=== PATIENT | female | born 1950 | race Caucasian/White ===

== ENCOUNTER 2024-05-18 04:25 | Inpatient (IN) | payer MEDICARE, SELFPAY ==
[2024-05-17 21:29] VITALS: BP 166/89
[2024-05-17 22:02] VITALS: BP 141/85
[2024-05-17 22:04] VITALS: BMI 29.7
[2024-05-17 23:00] VITALS: BP 140/71
[2024-05-18] VITALS (7 sets, daily range): BP systolic 132–159; BP diastolic 74–91; BMI 30.4
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
[2024-05-18 01:38] LABS: % Basophils 0.4 % (0-2); % Eosinophils 1.1 % (0-6); % Immature Granulocytes 0.4 % (0-0.5); % Lymphocytes 9.5 % (20.5-51.1); % Monocytes 4.9 % (1.7-9.3); % Neutrophils 83.7 % (42.2-75.2); Absolute Basophils 0.1 10^3/uL (0-0.2); Absolute Eosinophils 0.2 10^3/uL (0-0.7); Absolute Immature Granulocytes 0.1 10^3/uL (0-0.05); Absolute Lymphocytes 1.4 10^3/uL (1.2-3.4); Absolute Monocytes 0.7 10^3/uL (0.1-0.6); Absolute Neutrophils 12.7 10^3/uL (1.4-6.5); Hematocrit 35.7 % (37.0-47.0); Hemoglobin 11.9 g/dL (12.0-16.0); Mean Corp Hgb Conc. 33.3 g/dL (33.0-37.0); Mean Corpuscular Hgb 25.8 pg (27.0-31.0); Mean Corpuscular Volume 77.4 fL (81.0-99.0); Mean Platelet Volume 9.3 fL (7.4-10.4); Nucleated Red Blood Cells % 0 %; Platelet Count 399 10^3/uL (130-400); Red Blood Cell Count 4.61 10^6/uL (4.20-5.40); Red Cell Dist. Width 13.6 % (11.5-14.5); White Blood Cell Count 15.1 10^3/uL (4.8-10.8)
[2024-05-18 01:51] LABS: Lactic Acid 0.9 mmol/L (0.7-2.0)
[2024-05-18 02:00] LABS: Blood Urea Nitrogen 35 mg/dl (7-17); Calcium 10.6 mg/dl (8.4-10.2); Carbon Dioxide 24 mmol/L (22-30); Chloride 102 mmol/L (98-107); Estimated Creatinine Clearance 36 ml/min; Glucose 129 mg/dl (70-99); Sodium 136 mmol/L (135-145); eGFR 43.42
[2024-05-18] MEDS: NSS 1000 IV ×4 (02:26→20:12)
[2024-05-18] MEDS: OFIRMEV 100 IV (04:00)
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
[2024-05-18] MEDS: ZOSYN 50 IV ×4 (04:23→21:30)
[2024-05-18] MEDS: FLUSH (NSS) 1 FLUSH IV (04:23)
--- NOTE | 2024-05-18 11:22 | W.PN.HOSP.TC ---
Today's Communication/Plan
-
apprec CRS
ice chips
IVF
Assessment / Plan
Assessment / Plan
pt is a 74 year old female
IF patient insists on leaving, it will be AMA--risk of colon perforation real.....
Large bowel obstruction with transition point in distal descending colon--had 2 BMs since arrival--? stricture, malignancy--apprec CRS--for gastrograffin/barium enema--ice chips only--cont zosyn for now
Anemia suspect chronic --check usual studies
HX Thyroid cancer, thyroid disorder
GERD -- PPI
Essential HTN--meds on hold
Hypercholesterolemia -- meds on hold
DVT proph
code status -- Full Code
Anticipated Discharge: > 48 hours
Subjective/Interval History
-
Date of Service: May 18, 2024
pt had 2 large BMs
Objective Data
-
Labs:
Laboratory Results
05/18/24
01:31
WBC 15.1 H
Hgb 11.9 L
Hct 35.7 L
Plt Count 399
Sodium 136
Potassium
Chloride 102
Carbon Dioxide 24
BUN 35 H
Creatinine 1.3 H
Glucose 129 H
Calcium 10.6 H
Total Bilirubin Cancelled
AST Cancelled
ALT Cancelled
Alkaline Phosphatase Cancelled
Vital Signs:
max temp for 24 hours
05/17/24
21:29
Temp 99.2 F
Vital Signs
Temp Pulse Resp BP Pulse Ox
97.9 F 108 16 148/91 100
05/18/24 07:35 05/18/24 07:35 05/18/24 07:35 05/18/24 07:35 05/18/24 07:35
Review of Systems
-
All other systems: Reviewed and negative
Abdomen/GI: Reports Constipated; Denies Abdominal Pain
Physical Exam
-
General: Well Developed, Well Nourished and No Apparent Distress
HEENT: Normocephalic and Atraumatic
Respiratory: Clear to Auscultation; Negative Wheezes or Rhonchi
Cardiac: Regular Rhythm and S1/S2; Negative Murmur
GI: Soft, Nontender, Nondistended and Normal Bowel Sounds
Musculoskeletal: No Clubbing, No Cyanosis and No Edema
Neuro: Awake and Alert
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
[2024-05-18] MEDS: NSS (PRESERVATIVE FREE) 10 ML IV (14:31)
[2024-05-18] MEDS: PROTONIX IV 40 MG IV (14:31)
--- NOTE | 2024-05-18 17:06 | CM ---
Alert awake oriented patient who lives with her Shaheen who lives in a 1 story home with 1 steps to enter.She is independent in driving and in all activities of daily living.Offered VN she declined.
No adaptive devices
Never had VN/SNF
Pharmacy [facility]
PCP Dr Wang
PLAN Home declined VN
[2024-05-19] MEDS: ZOSYN 50 IV ×4 (03:56→21:44)
[2024-05-19 06:08] LABS: Hematocrit 34.3 % (37.0-47.0); Hemoglobin 11.1 g/dL (12.0-16.0); Mean Corp Hgb Conc. 32.4 g/dL (33.0-37.0); Mean Corpuscular Hgb 25.9 pg (27.0-31.0); Mean Platelet Volume 9.3 fL (7.4-10.4); Platelet Count 411 10^3/uL (130-400); Red Blood Cell Count 4.29 10^6/uL (4.20-5.40); Red Cell Dist. Width 13.9 % (11.5-14.5); Reticulocyte Count 1.2 % (0.4-2.8); White Blood Cell Count 12.1 10^3/uL (4.8-10.8)
[2024-05-19 06:35] LABS: ALT (SGPT) 16 U/L (0-35); AST (SGOT) 20 U/L (14-36); Albumin 3.9 g/dl (3.5-5.0); Alkaline Phosphatase 100 U/L (38-126); Blood Urea Nitrogen 21 mg/dl (7-17); Calcium 9.9 mg/dl (8.4-10.2); Carbon Dioxide 21 mmol/L (22-30); Chloride 108 mmol/L (98-107); Estimated Creatinine Clearance 37 ml/min; Glucose 87 mg/dl (70-99); Magnesium 1.9 mg/dl (1.6-2.3); Potassium 4.8 mmol/L (3.5-5.1); Sodium 139 mmol/L (135-145); Total Bilirubin 0.4 mg/dl (0.2-1.3); Total Protein 6.2 g/dl (6.3-8.2); eGFR 43.42
[2024-05-19 06:45] LABS: Total Iron Binding Capacity 277 ug/dl (265-497)
[2024-05-19 07:03] LABS: TSH Reflex To Free T4 2.19 uIU/ml (0.47-4.68)
[2024-05-19 07:38] LABS: Folate 10.9 ng/ml (2.76-20); Vitamin B12 > 1000 pg/ml (239-931)
[2024-05-19 07:40] VITALS: BP 121/74
[2024-05-19] MEDS: NSS (PRESERVATIVE FREE) 10 ML IV (07:49)
[2024-05-19] MEDS: PROTONIX IV 40 MG IV (07:49)
[2024-05-19] MEDS: NSS 1000 IV ×2 (07:53→21:43)
[2024-05-19 08:39] LABS: CEA 8.44 ng/ml
--- NOTE | 2024-05-19 10:23 | W.PN.HOSP.TC ---
Today's Communication/Plan
-
Continue with IV fluids and IV antibiotics
Keep NPO.
For Gastrografin enema in a.m.
Assessment / Plan
Assessment / Plan
pt is a 74 year old female
Acute on chronic constipation - CT imaging concerning for Large bowel obstruction with transition point in distal descending colon--had 2 BMs since arrival--? stricture, malignancy--apprec CRS--for gastrograffin/barium enema--ice chips /NPO
Leukocytosis with a circumferential thickening associated diverticula formation and soft tissue stranding in the distal descending colon. There is also wall thickening associated diverticulosis and luminal narrowing throughout the proximal to mid
sigmoid colon-concerning for segmental colitis versus stercoral coral colitis.-cont zosyn for now.Improving WBC
Anemia -Microcytic
Iron studies suggest no iron deficiency. B12 folate normal. Anemia mild in nature. Follow as an outpatient
HX Thyroid cancer, thyroid disorder
GERD -- PPI
Essential HTN--meds on hold
Hypercholesterolemia -- meds on hold
DVT proph
code status -- Full Code
Anticipated Discharge: > 48 hours
Subjective/Interval History
-
Date of Service: May 19, 2024
No bowel movement today but passing gas. She has some crampy lower abdominal pain today.
No nausea vomiting.
Objective Data
-
Labs:
Laboratory Results
05/19/24
05:49
WBC 12.1 H
Hgb 11.1 L
Hct 34.3 L
Plt Count 411 H
Sodium 139
Potassium 4.8
Chloride 108 H
Carbon Dioxide 21 L
BUN 21 H
Creatinine 1.3 H
Glucose 87
Calcium 9.9
Total Bilirubin 0.4
AST 20
ALT 16
Alkaline Phosphatase 100
Vital Signs:
Vital Signs
Temp Pulse Resp BP Pulse Ox
98.1 F 87 16 121/74 98
05/19/24 07:40 05/19/24 07:40 05/19/24 07:40 05/19/24 07:40 05/19/24 07:40
I&O
05/18/24 05/19/24 05/20/24
06:59 06:59 06:59
Intake Total 980 / 980
Balance 980 / 980
Review of Systems
-
Constitutional: Denies Fever
EENT: Denies Sore Throat
Respiratory: Denies Cough or Trouble Breathing
Cardiac: Denies Chest Pain
Neuro: Denies Dizzy
Physical Exam
-
General: No Apparent Distress
HEENT: Moist Mucous Membranes
Respiratory: Clear to Auscultation
Cardiac: Regular Rhythm and S1/S2
GI: Soft and Distended; Negative Normal Bowel Sounds (hypoactive) or Tender
Neuro: AO x 3
Data Reviewed
-
Labs: Labs Reviewed by me
[2024-05-19 10:41] VITALS: BMI 30.1
[2024-05-19] MEDS: DILAUDID 0.5 MG IV (10:46)
--- NOTE | 2024-05-19 11:27 | W.PN.GS2 ---
Addendum entered and electronically signed by Phong Zuleta MD 05/19/24 11:51:
Patient seen and examined with [employer], agree with documented progress note
About the same as yesterday afternoon.
Some tenderness at times/discomfort but improved from presentation
Passing flatus but no significant further bowel movements since yesterday a.m.
AFVSS
ABD: Soft, mildly distended, nontender on examination even on deep palpation
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
Appears to be partial but uncertain degree if high or low/moderate partial
No indications for urgent intervention
Will obtain Gastrografin enema to evaluate characteristics of stricture tomorrow further surgical planning pending results
Original Note:
Today's Communication / Plan
-
CT with Gastrografin enema in AM
Assessment / Plan
-
74-year-old female presenting with large bowel obstruction and resultant constipation which is acute on chronic. This appears radiographically to be a rather high-grade distal colonic obstruction within the descending colon.
Uncertain etiology but there appears to be circumferential wall thickening in the distal descending colon this could be inflammatory infectious or neoplastic in nature.
Reported large formed bowel movements providing relief of her symptoms but no BM since, passing flatus. She is nontoxic and there is no peritoneal signs. CEA mildly elevated.
AFVSS
Labs stable. WBC is trending down.
--Continue NPO
--IVF while NPO
--Continue empiric abx
--VTE ppx as per primary team
--Plan Gastrografin enema study tomorrow AM in radiology to help define the location and severity of stricture which will then help further guide interventions and management which may include colonoscopy for further diagnostic purposes.
If there was clinical decline there could be indications for urgent surgical management.
Subjective Data
-
Date of Service: May 19, 2024
Patient seen and examined at bedside with Dr. Zuleta. Denies n/v. No stools since yesterday morning. Passing some gas. Pain when laying flat, otherwise comfortable.
Objective Data
-
Intake and Output
05/18/24 05/19/24 05/20/24
06:59 06:59 06:59
Intake Total 980 / 980
Balance 980 / 980
Intake:
IV fluids (Total) 880 / 880
IV piggybacks 100 / 100
Other:
Number of approximated MODERATE 1 3
amounts of urine
Vital Signs
Temp Pulse Resp BP Pulse Ox
98.1 F 87 16 121/74 98
05/19/24 07:40 05/19/24 07:40 05/19/24 07:40 05/19/24 07:40 05/19/24 07:40
Lab Results
05/19/24 05:49
05/19/24 05:49
Calcium 9.9 mg/dl (8.4-10.2) 05/19/24 05:49
Magnesium 1.9 mg/dl (1.6-2.3) 05/19/24 05:49
Total Bilirubin 0.4 mg/dl (0.2-1.3) 05/19/24 05:49
AST 20 U/L (14-36) 05/19/24 05:49
ALT 16 U/L (0-35) 05/19/24 05:49
Alkaline Phosphatase 100 U/L (38-126) 05/19/24 05:49
Total Protein 6.2 g/dl (6.3-8.2) L 05/19/24 05:49
Albumin 3.9 g/dl (3.5-5.0) 05/19/24 05:49
Physical Exam
-
NAD
ABD soft, mild distention, NT, [employer]
[2024-05-19 15:56] VITALS: BP 128/76
[2024-05-19 23:22] VITALS: BP 149/76
[2024-05-20] MEDS: ZOSYN 50 IV ×3 (03:49→15:30)
[2024-05-20 06:00] VITALS: BMI 30.2
[2024-05-20 06:38] LABS: Hematocrit 33.8 % (37.0-47.0); Hemoglobin 10.8 g/dL (12.0-16.0); Mean Corpuscular Hgb 25.5 pg (27.0-31.0); Mean Corpuscular Volume 79.7 fL (81.0-99.0); Mean Platelet Volume 9.4 fL (7.4-10.4); Platelet Count 387 10^3/uL (130-400); Red Blood Cell Count 4.24 10^6/uL (4.20-5.40); Red Cell Dist. Width 13.6 % (11.5-14.5); White Blood Cell Count 9.6 10^3/uL (4.8-10.8)
[2024-05-20 07:00] VITALS: BP 144/75
[2024-05-20 07:07] LABS: Blood Urea Nitrogen 18 mg/dl (7-17); Calcium 9.8 mg/dl (8.4-10.2); Carbon Dioxide 15 mmol/L (22-30); Chloride 108 mmol/L (98-107); Estimated Creatinine Clearance 43 ml/min; Glucose 50 mg/dl (70-99); Potassium 4.6 mmol/L (3.5-5.1); Sodium 138 mmol/L (135-145); eGFR 53.06
[2024-05-20] MEDS: D5LR 1000 IV (08:27)
[2024-05-20] MEDS: NSS (PRESERVATIVE FREE) 10 ML IV (08:29)
[2024-05-20] MEDS: PROTONIX IV 40 MG IV (08:30)
[2024-05-20 08:35] LABS: Glucose - Point of Care 49 mg/dl (70-99)
[2024-05-20] MEDS: DEXTROSE 50% SYRINGE 25 GRAMS IV (08:59)
--- NOTE | 2024-05-20 09:15 | W.PN.GS2 ---
Today's Communication / Plan
-
Gastrografin enema today
Assessment / Plan
-
74-year-old female presenting with large bowel obstruction and resultant constipation which is acute on chronic. This appears radiographically to be a rather high-grade distal colonic obstruction within the descending colon.
Uncertain etiology but there appears to be circumferential wall thickening in the distal descending colon this could be inflammatory, infectious vs neoplastic. CEA mildly elevated.
Able to pass large stool yesterday
She is nontoxic and there is no peritoneal signs.
AFVSS
Leukocytosis resolved
Hypoglycemia on am labs
--Continue NPO
--IVF while NPO, changed to D5/LR given hypoglycemia
--Continue empiric abx
--VTE ppx as per primary team
--Plan Gastrografin enema study today in radiology to help define the location and severity of stricture which will then help further guide interventions and management
If there was clinical decline there could be indications for urgent surgical management.
Subjective Data
-
Date of Service: May 20, 2024
Patient seen and examined today at bedside with Dr. Liu. Notes that yesterday afternoon she passed a very large BM and flatus. Denies pain. Denies n/v.
Objective Data
-
Intake and Output
05/19/24 05/20/24 05/21/24
06:59 06:59 06:59
Intake Total 980 / 980 240 / 240
Balance 980 / 980 240 / 240
Intake:
Oral fluids 240 / 240
IV fluids (Total) 880 / 880
IV piggybacks 100 / 100
Other:
Number of approximated MODERATE 3 2
amounts of urine
Vital Signs
Temp Pulse Resp BP Pulse Ox
97.8 F 86 18 144/75 100
05/20/24 07:00 05/20/24 07:00 05/20/24 07:00 05/20/24 07:00 05/20/24 07:00
Lab Results
05/20/24 06:15
05/20/24 06:15
Calcium 9.8 mg/dl (8.4-10.2) 05/20/24 06:15
Magnesium 1.9 mg/dl (1.6-2.3) 05/19/24 05:49
Total Bilirubin 0.4 mg/dl (0.2-1.3) 05/19/24 05:49
AST 20 U/L (14-36) 05/19/24 05:49
ALT 16 U/L (0-35) 05/19/24 05:49
Alkaline Phosphatase 100 U/L (38-126) 05/19/24 05:49
Total Protein 6.2 g/dl (6.3-8.2) L 05/19/24 05:49
Albumin 3.9 g/dl (3.5-5.0) 05/19/24 05:49
Physical Exam
-
NAD
ABD soft, mild distention, NT, [employer]ING SUPERVISOR
[2024-05-20 09:22] LABS: Glucose - Point of Care 144 mg/dl (70-99)
[2024-05-20 12:11] LABS: Glycohemoglobin (HgbA1c) 6.9 % (4.0-5.6)
--- NOTE | 2024-05-20 12:59 | W.PN.HOSP.TC ---
Addendum entered and electronically signed by Serge Hernandez MD 05/20/24 16:02:
I saw and evaluated the patient. I reviewed the resident�s note and agree with findings and plan as documented in the resident�s note.
Gastrografin enema study shows no evidence of obvious obstruction. Patient has been having change in bowel habits / over the last few months. She notices some correlation with her ferrous sulfate medication. She has been taking ferrous sulfate
for iron deficiency issues. She is not on any bowel regimen normally. Advised her to keep her hydrated. Advised to add prunes to her diet. Started on Metamucil and MiraLAX. If continue to have constipation to follow-up with PCP or with GI.
She moved from [place] to [place] a year and a half ago and follows with a local PCP. Does not see any other specialist. Lately she noticed low blood pressure at home. 1 reading was showing 90 mmHg systolic. She almost passed out on 1
occasion. Blood pressure has been mostly under goal here. Advised to stop spironolactone as patient with chronic kidney disease/renal insufficiency. Also advised to cut down Vasotec to 1 tablet in the morning and 1 tablet in the evening and
continue to follow blood pressures at home.
cannot rule out stercoral colitis. Will complete 7-day course of antibiotics. Prescribed Augmentin for another 5 days.
Medically stable for discharge home. Patient understood the changes in the medication and follow-up plan.
Total time of discharge 35 minutes
Original Note:
Today's Communication/Plan
-
Continue NPO, IVF while NPO. Changed to D5/lactated ringer for hypoglycemia. Continue empiric antibiotics. Barium enema showed no evidence of acute pathology. No evidence of stricture or obstruction at the mid descending colon. Diverticuli are
present in the colon with no CT evidence of diverticulitis.
Assessment / Plan
Assessment / Plan
Patient is a 74 year old female
- Acute on chronic constipation - Improving
CT imaging concerning for Large bowel obstruction with transition point in distal descending colon
Had two BMs since arrival
Barium enema showed no evidence of acute pathology. There was no evidence of stricture or obstruction in the mid descending colon. Diverticula are present in the colon with no CT evidence of diverticulitis.
Continue n.p.o.
IVF while NPO changed to D5/LR for hypoglycemia
- Leukocytosis with a circumferential thickening associated diverticula formation and soft tissue stranding in the distal descending colon: Improving
There is also wall thickening associated diverticulosis and luminal narrowing throughout the proximal to mid sigmoid colon - concerning for segmental colitis versus stercoral coral colitis.
Continuing Zosyn.
WBCs within normal range at 9.6
- Anemia - Microcytic: Stable
Iron studies suggest no iron deficiency. B12 folate normal. Anemia mild in nature.
Appropriate to follow as an outpatient
- HX Thyroid cancer, thyroid disorder
- GERD: Stable
Continue PPI
- Essential HTN:
meds on hold
Hypercholesterolemia:
meds on hold
DVT proph
code status -- Full Code
Anticipated Discharge: 24 - 48 hours
Subjective/Interval History
-
Date of Service: May 20, 2024
Met with patient at the bedside. Overall, she is doing better and states that she offers no complaints at the present time. She does wish that she would be able to eat or drink something more than ice chips today.
Objective Data
-
Labs:
Laboratory Results
05/20/24
06:15
WBC 9.6
Hgb 10.8 L
Hct 33.8 L
Plt Count 387
Sodium 138
Potassium 4.6
Chloride 108 H
Carbon Dioxide 15 L
BUN 18 H
Creatinine 1.1 H
Glucose 50 L*
Calcium 9.8
Vital Signs:
Vital Signs
Temp Pulse Resp BP Pulse Ox
97.8 F 86 18 144/75 100
05/20/24 07:00 05/20/24 07:00 05/20/24 07:00 05/20/24 07:00 05/20/24 09:46
I&O
05/19/24 05/20/24 05/21/24
06:59 06:59 06:59
Intake Total 980 / 980 240 / 240
Balance 980 / 980 240 / 240
Review of Systems
-
History Source: Patient
Constitutional: Reports No Symptoms
EENT: Reports No Symptoms Reported
Respiratory: Reports No Symptoms
Cardiac: Reports No Symptoms
Breast: Reports No Symptoms
Allergy / Immunology: Reports No Symptoms
Physical Exam
-
General: Well Developed, Well Nourished and No Apparent Distress
HEENT: Normocephalic, Atraumatic and Moist Mucous Membranes
Respiratory: Clear to Auscultation
Cardiac: Regular Rhythm and S1/S2
Breast: Deferred by me
GI: Soft, Nontender, Nondistended and Other (Minimal bowel sounds)
Rectal: Deferred by Provider
Genito-urinary: Deferred by me
Musculoskeletal: No Clubbing, No Cyanosis and No Edema
Skin: Warm
Neuro: Nonfocal/Grossly Intact
Hematologic / Lymphatic: Lymphadenopathy
Psych: Calm
[2024-05-20 14:08] LABS: Glucose - Point of Care 132 mg/dl (70-99)
[2024-05-20 15:00] VITALS: BP 140/76
--- NOTE | 2024-05-20 15:20 | W.DS.TRANS ---
DC Summary - Adult Caregiver
-
Discharge Instructions:
Discharge Diagnosis/Procedures Constipation, Diverticulitis/stercolitis, Hx of
Thyroid Cancer, Essential HTN,
Diet Regular,As tolerated
Activity No restrictions
Driving Restrictions As prior to admission
Bathing Restrictions None
Instructions:
Stand-Alone Forms:
Changes to Home Medications: Yes
Discharge Medications:
DC Medications w/original date entered in [employer]
amitriptyline 75 mg tablet 75 mg PO HS Mental Health/Anxiety 05/18/24
cyanocobalamin (B12)-cobamamide 5,000 mcg-100 mcg sublingual lozenge (B12) 15,000 medina sublingual HS Supplement 05/18/24
diltiazem HCl 120 mg capsule,24 hr,extended release 120 mg PO HS CARDIAC 05/18/24
enalapril maleate 10 mg tablet (Vasotec) 10 mg PO QPM Blood Pressure 05/18/24
esomeprazole magnesium 40 mg capsule,delayed release (Nexium) 40 mg PO HS GERD 05/18/24
ferrous sulfate 325 mg (65 mg iron) tablet (Iron (ferrous sulfate)) 325 mg PO DAILY Supplement 05/18/24
levothyroxine 125 mcg tablet (Synthroid) 125 mcg PO DAILY Thyroid 05/18/24
pravastatin 20 mg tablet 20 mg PO HS High Cholesterol 05/18/24
amoxicillin 875 mg-potassium clavulanate 125 mg tablet 1 tab PO BID #10 tabs 05/20/24
enalapril maleate 20 mg tablet (Vasotec) 10 mg (1/2 x 20 mg) PO DAILY Blood Pressure #0 tabs 05/20/24
polyethylene glycol 3350 17 gram oral powder packet 17 g PO DAILYPRN PRN constipation #30 packets 05/20/24
polyethylene glycol 3350 17 gram oral powder packet (Miralax) 17 g PO DAILY #30 ea 05/20/24
psyllium husk 0.4 gram capsule (Metamucil) 0.4 g PO DAILY #30 caps 05/20/24
Home Medication Changes
New Meds added:
Metamucil, Miralax, and Augmentin added upon discharge.
Stopped Meds:
Spironolactone
Changes in Meds:
Decreased Vasotec AM dose from 20mg to 10mg.
Pending Results: No
--- NOTE | 2024-05-20 15:28 | W.DCSUMMARY ---
Addendum entered and electronically signed by Serge Hernandez MD 05/20/24 16:03:
Read, reviewed, and agree. See same day progress note for additional details. Time spent coordinating care, DC planning, review of DC plan of care with resident, transition of care, review of records in EMR, med rec, consults, notes, d/w
consultants, nursing, family, and CM mins
Original Note:
Documented by User: Jannet Ramos MD, Resident 05/20/24 15:49
Discharge Summary
Discharge Data
Date of Admission: 05/18/24
Date of Discharge: 05/20/24
-
Pending Results: No
Hospital Course
Patient is a 74-year-old female who presented to the emergency room complaining of not having a bowel movement for the past 10 days. She had a bowel movement prior to her dental surgery which took place on May 07 but not since then. She took
Dulcolax and magnesium citrate but it did not help. She had a prior history of diverticulitis and also had a history of hiatal hernia repair. In the emergency department she managed to pass let us which made her feel better but was unable to pass
stool. A CT of the abdomen was conducted which showed evidence of a large bowel obstruction with a transition point in the distal descending colon with wall thickening and surrounding inflammation with moderate diverticulosis with distal
compression. Patient was admitted to the hospital and a chrome FN/barium enema was ordered and ice chips were given. Zosyn was ordered for empiric antibiotic treatment.
The patient was put on bowel rest due to suspected large bowel obstruction. IV fluid hydration and further natural decompression of her colon through bowel rest was encouraged. As the patient remained n.p.o. and was under bowel rest, her symptoms
slowly improved. After adequate bowel rest she was able to pass a very large bowel movement and flatus. Upon having her bowel movement her symptoms improved. Barium enema conducted showed no evidence of acute pathology. There was no evidence of
stricture or obstruction in the mid descending colon. Diverticula are present in the colon with no evidence of diverticulitis. Patient was returned to a regular diet after adequate bowel rest. Patient was able to tolerate her regular diet.
The patient has reached maximal benefit from this hospital stay and is acceptable for discharge. Metamucil, MiraLAX, and Augmentin have been added upon discharge. We have stopped spironolactone due to concerns of interactions between her home
medications and her kidney function. We have also decreased her Vasotec morning dose from 20 mg to 10 mg. Patient is appropriate to follow up with in the outpatient setting.
Discharge Plan
-
Patient Disposition: Home (Routine Discharge)
Discharge Diagnosis/Procedures: Constipation, Diverticulitis/stercolitis, Hx of Thyroid Cancer, Essential HTN,
Diet: As tolerated and Regular
Activity: No restrictions
Driving Restrictions: As prior to admission
Bathing Restrictions: None
Blood Work: BMP in 1 week - Arrange through PCP.
Activity Restrictions/Additional Instructions:
Avoid constipation, keep your stools soft with over the counter Miralax daily. Please call your surgeon if you have difficulty passing stools or have abdominal cramping/pain.
Referrals:
Tristin Wang DO [Family Provider] -
Phong Zuleta MD [Active] - in one to two weeks
Prescriptions:
New
polyethylene glycol 3350 17 gram powder in packet
17 g PO DAILYPRN PRN (Reason: constipation) Qty: 30 0RF
amoxicillin-pot clavulanate 875-125 mg tablet
1 tab PO BID Qty: 10 0RF
psyllium husk [Metamucil] 0.4 gram capsule
0.4 g PO DAILY Qty: 30 0RF
polyethylene glycol 3350 [Miralax] 17 gram powder in packet
17 g PO DAILY Qty: 30 0RF
Continued
enalapril maleate [Vasotec] 10 mg Tablet
10 mg PO QPM
amitriptyline 75 mg Tablet
75 mg PO HS
diltiazem HCl 120 mg Capsule,Extended Release 24 Hr
120 mg PO HS
ferrous sulfate [Iron (ferrous sulfate)] 325 mg (65 mg iron) Tablet
325 mg PO DAILY
esomeprazole magnesium [Nexium] 40 mg Capsule,Delayed Release(Dr/Ec)
40 mg PO HS
levothyroxine [Synthroid] 125 mcg Tablet
125 mcg PO DAILY
pravastatin 20 mg Tablet
20 mg PO HS
B12 5,000-100 mcg Lozenge
15,000 medina SUBLINGUAL HS
Changed
enalapril maleate [Vasotec] 20 mg Tablet
10 mg PO DAILY Qty: 0 0RF
Rx Instructions:
Dose decreased to 10mg
Discontinued
spironolactone 25 mg Tablet
25 mg PO DAILY
Discharge Orders:
Discharge Patient (As Directed); Ordered 05/20/24
Ordered By: Jannet Ramos
Discharge Date and Time
Print Language: BRAZILIAN

Documented by User: Serge Hernandez MD 05/20/24 16:02
Discharge Summary
Discharge Data
Date of Admission: 05/18/24
Date of Discharge: 05/20/24
Discharge Plan
-
Patient Disposition: Home (Routine Discharge)
Discharge Diagnosis/Procedures: Constipation, Diverticulitis/stercolitis, Hx of Thyroid Cancer, Essential HTN,
Diet: As tolerated and Regular
Activity: No restrictions
Driving Restrictions: As prior to admission
Bathing Restrictions: None
Blood Work: BMP in 1 week - Arrange through PCP.
Activity Restrictions/Additional Instructions:
Avoid constipation, keep your stools soft with over the counter Miralax daily. Please call your surgeon if you have difficulty passing stools or have abdominal cramping/pain.
Referrals:
Tristin Wang DO [Family Provider] -
Phong Zuleta MD [Active] - in one to two weeks
Prescriptions:
New
polyethylene glycol 3350 17 gram powder in packet
17 g PO DAILYPRN PRN (Reason: constipation) Qty: 30 0RF
amoxicillin-pot clavulanate 875-125 mg tablet
1 tab PO BID Qty: 10 0RF
psyllium husk [Metamucil] 0.4 gram capsule
0.4 g PO DAILY Qty: 30 0RF
polyethylene glycol 3350 [Miralax] 17 gram powder in packet
17 g PO DAILY Qty: 30 0RF
Continued
enalapril maleate [Vasotec] 10 mg Tablet
10 mg PO QPM
amitriptyline 75 mg Tablet
75 mg PO HS
diltiazem HCl 120 mg Capsule,Extended Release 24 Hr
120 mg PO HS
ferrous sulfate [Iron (ferrous sulfate)] 325 mg (65 mg iron) Tablet
325 mg PO DAILY
esomeprazole magnesium [Nexium] 40 mg Capsule,Delayed Release(Dr/Ec)
40 mg PO HS
levothyroxine [Synthroid] 125 mcg Tablet
125 mcg PO DAILY
pravastatin 20 mg Tablet
20 mg PO HS
B12 5,000-100 mcg Lozenge
15,000 medina SUBLINGUAL HS
Changed
enalapril maleate [Vasotec] 20 mg Tablet
10 mg PO DAILY Qty: 0 0RF
Rx Instructions:
Dose decreased to 10mg
Discontinued
spironolactone 25 mg Tablet
25 mg PO DAILY
Discharge Orders:
Discharge Patient (As Directed); Ordered 05/20/24
Ordered By: Jannet Ramos
Discharge Date and Time
Print Language: BRAZILIAN
[2024-05-20 19:43] LABS: Hepatitis C Antibody Negative (Negative)
== END 2024-05-20 17:28 | disposition home or self-care (01) | DRG 390 ==
LOC: 3 WEST ACU 04:25
PROVIDERS: Internal Medicine; Registered Nurse; ADMITTING PHYSICIAN Internal Medicine; ATTENDING PHYSICIAN Internal Medicine; CONSULT PHYSICIAN Surgery; EMERGENCY PHYSICIAN Emergency Medicine; FAMILY PHYSICIAN Family Medicine
DX: K56.690 Other partial intestinal obstruction (principal); K59.00 Constipation, unspecified; K21.9 Gastro-esophageal reflux disease without esophagitis; I12.9 Hypertensive chronic kidney disease with stage 1 through stage 4 chronic kidney disease, or unspecified chronic kidney disease; K57.30 Diverticulosis of large intestine without perforation or abscess without bleeding; N18.9 Chronic kidney disease, unspecified; D64.9 Anemia, unspecified; E16.2 Hypoglycemia, unspecified; E78.00 Pure hypercholesterolemia, unspecified; D72.829 Elevated white blood cell count, unspecified; Z87.828 Personal history of other (healed) physical injury and trauma; Z88.8 Allergy status to other drugs, medicaments and biological substances; Z91.040 Latex allergy status; Z85.850 Personal history of malignant neoplasm of thyroid
CPT/HCPCS: 74018; 74022; 74177; 74270; 80048; 80053; 82378; 82607; 82728; 82746; 82962; 83036; 83550; 83605; 83735; 84443; 85025; 85027; 85045; 86803; 96361; 96374; 99285; Q9967

== ENCOUNTER → 2024-06-19 06:33 | Day surgery (SDC) | payer MEDICARE, SELFPAY | LOC: GI 06:33 | PROVIDERS: ATTENDING PHYSICIAN Internal Medicine | DX: R93.3 Abnormal findings on diagnostic imaging of other parts of digestive tract (principal); K64.9 Unspecified hemorrhoids; K57.30 Diverticulosis of large intestine without perforation or abscess without bleeding; K56.609 Unspecified intestinal obstruction, unspecified as to partial versus complete obstruction | CPT/HCPCS: 45378 ==

== ENCOUNTER → 2024-06-20 06:29 | Day surgery (SDC) | payer MEDICARE, SELFPAY | LOC: GI 06:29 | PROVIDERS: ATTENDING PHYSICIAN Internal Medicine | DX: D50.9 Iron deficiency anemia, unspecified (principal); R93.3 Abnormal findings on diagnostic imaging of other parts of digestive tract; K57.30 Diverticulosis of large intestine without perforation or abscess without bleeding; K64.8 Other hemorrhoids; K64.4 Residual hemorrhoidal skin tags; K58.9 Irritable bowel syndrome, unspecified; D12.0 Benign neoplasm of cecum | CPT/HCPCS: 45380; 88305 ==

== ENCOUNTER → 2025-01-14 09:12 | Outpatient (REF) | payer MEDICARE, SELFPAY | LOC: HWRAD 09:12 | PROVIDERS: ATTENDING PHYSICIAN Internal Medicine Nephrology; FAMILY PHYSICIAN Family Medicine | DX: N18.31 Chronic kidney disease, stage 3a (principal) | CPT/HCPCS: 76770 ==

== ENCOUNTER 2025-05-06 06:29 | Day surgery (SDC) | payer MEDICARE, SELFPAY | END 2025-05-06 09:55 | disposition home or self-care (01) | LOC: GI 06:29 | PROVIDERS: ATTENDING PHYSICIAN Internal Medicine | DX: D51.0 Vitamin B12 deficiency anemia due to intrinsic factor deficiency (principal); K44.9 Diaphragmatic hernia without obstruction or gangrene; K22.4 Dyskinesia of esophagus; K31.89 Other diseases of stomach and duodenum | CPT/HCPCS: 43239; 88305 ==

== ENCOUNTER 2025-08-21 20:07 | Emergency (ER) | payer MEDICARE, SELFPAY ==
[2025-08-21 20:09] VITALS: BP 169/88
[2025-08-21 20:37] LABS: Hematocrit 37.4 % (37.0-47.0); Hemoglobin 11.8 g/dL (12.0-16.0); Mean Corp Hgb Conc. 31.6 g/dL (33.0-37.0); Mean Corpuscular Volume 78.2 fL (81.0-99.0); Nucleated Red Blood Cells % 0 %; Platelet Count 312 10^3/uL (130-400); Red Cell Dist. Width 14.9 % (11.5-14.5)
[2025-08-21 20:57] LABS: ALT (SGPT) 20 U/L (0-35); AST (SGOT) 21 U/L (14-36); Albumin 4.6 g/dl (3.5-5.0); Alkaline Phosphatase 124 U/L (38-126); Blood Urea Nitrogen 21 mg/dl (7-17); Calcium 10.5 mg/dl (8.4-10.2); Carbon Dioxide 27 mmol/L (22-30); Glucose 134 mg/dl (70-99); Total Protein 7.3 g/dl (6.3-8.2); eGFR 52.73
[2025-08-21 21:06] LABS: Chloride 105 mmol/L (98-107); Potassium 4.9 mmol/L (3.5-5.1); Sodium 138 mmol/L (135-145)
[2025-08-21 22:00] VITALS: BP 147/82
[2025-08-21 23:00] VITALS: BP 155/72
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
[2025-08-21 23:51] VITALS: BMI 29.3
[2025-08-22] VITALS: BP 155/74
[2025-08-22 01:00] VITALS: BP 149/68
== END 2025-08-22 01:37 | disposition home or self-care (01) ==
LOC: EMR 20:07
PROVIDERS: Emergency Medicine; EMERGENCY PHYSICIAN Emergency Medicine; FAMILY PHYSICIAN Family Medicine
DX: D64.9 Anemia, unspecified (principal); R20.2 Paresthesia of skin; M54.2 Cervicalgia; M79.652 Pain in left thigh; E11.9 Type 2 diabetes mellitus without complications; E78.00 Pure hypercholesterolemia, unspecified; I10 Essential (primary) hypertension; E53.8 Deficiency of other specified B group vitamins; Z85.850 Personal history of malignant neoplasm of thyroid; C73 Malignant neoplasm of thyroid gland
CPT/HCPCS: 99284; 80053; 85025; 93005; 93971

== ENCOUNTER → 2025-08-22 07:51 | Outpatient (REF) | payer MEDICARE, SELFPAY | LOC: HWRAD 07:51 | PROVIDERS: ATTENDING PHYSICIAN Family Medicine | DX: M81.0 Age-related osteoporosis without current pathological fracture (principal) | CPT/HCPCS: 77080 ==

== ENCOUNTER 2025-10-01 10:49 | Emergency (ER) | payer MEDICARE, SELFPAY ==
[2025-10-01 10:54] VITALS: BP 195/104
--- NOTE | 2025-10-01 13:20 | EDRN ---
Pt stated that she just voided a good amount post straight cath so bladder scan repeated. Dr. Chambers informed of both bladder scan results and straight cath.
[2025-10-01 13:24] LABS: Urine Character Clear (Clear)
[2025-10-01 13:30] VITALS: BP 172/112; BMI 36.6
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
[2025-10-01 13:44] LABS: Hematocrit 39.5 % (37.0-47.0); Hemoglobin 12.5 g/dL (12.0-16.0); Mean Corp Hgb Conc. 31.6 g/dL (33.0-37.0); Mean Corpuscular Volume 77.9 fL (81.0-99.0); Nucleated Red Blood Cells % 0 %; Red Cell Dist. Width 14.4 % (11.5-14.5)
[2025-10-01 14:04] LABS: Blood Urea Nitrogen 8 mg/dl (7-17); Calcium 10.2 mg/dl (8.4-10.2); Carbon Dioxide 34 mmol/L (22-30); Chloride 100 mmol/L (98-107); Estimated Creatinine Clearance 50 ml/min; Glucose 111 mg/dl (70-99); Potassium 3.4 mmol/L (3.5-5.1); Sodium 142 mmol/L (135-145); eGFR 59.12
[2025-10-01 14:16] VITALS: BP 174/95
[2025-10-01 15:00] VITALS: BP 184/83
== END 2025-10-01 16:00 | disposition home or self-care (01) ==
LOC: EMR 10:49
PROVIDERS: EMERGENCY PHYSICIAN Emergency Medicine; FAMILY PHYSICIAN Family Medicine
DX: K59.00 Constipation, unspecified (principal); R33.9 Retention of urine, unspecified; R22.43 Localized swelling, mass and lump, lower limb, bilateral; E78.00 Pure hypercholesterolemia, unspecified; I10 Essential (primary) hypertension; Z85.850 Personal history of malignant neoplasm of thyroid
CPT/HCPCS: 99283; 80048; 81003; 85025